=== PATIENT | male | born 1995 | race African-American/Black ===

== ENCOUNTER → 2016-12-30 | Outpatient (CLI) | payer OTHER ==
[2015-07-22 21:21] VITALS: BP 144/76
--- NOTE | 2016-12-30 15:45 | RAD ---
Renal ultrasound, 12/30/2016: History: Severe right flank pain The right kidney measures 11.0 cm in length, while the left kidney measures 13.5 cm. There is no evidence of hydronephrosis or a renal mass. No abnormal perinephric process is seen. The urinary bladder is collapsed and poorly defined. Apparent thickening of its hammer is probably due to lack of distention. IMPRESSION: 1. Mild relative enlargement of the left kidney. 2. No evidence of renal obstruction.
== END | disposition home or self-care (01) ==
LOC: US 13:32
PROVIDERS: ATTEND Internal Medicine
DX: N28.89 Other specified disorders of kidney and ureter (principal); N32.89 Other specified disorders of bladder
CPT/HCPCS: 76770

== ENCOUNTER 2018-11-11 11:55 | Emergency (ER) | payer BC, OTHER ==
[~2018-11-11] VITALS: Ht 188 cm; Wt 117.9 kg
[2018-11-11 12:25] VITALS: BP 106/66
[2018-11-11] MEDS ORDERED: HYDROcodone/APAP 5/325MG 1 TAB TABLET PO ONE (13:00)
--- NOTE | 2018-11-11 13:25 | RAD ---
ANKLE RIGHT 3V History: PATIENT ROLLED ANKLE ON A CURB LAST NIGHT. PAIN ACROSS ANTERIOR ASPECT OF ANKLE AND ON BOTH SIDES OF ANKLE. . Comparison: None are available Small ossicle dorsal to the talonavicular joint appears chronic. Small ununited os trigonum. No evidence of an acute fracture. No dislocation. Subtle widening of the lateral ankle mortise. IMPRESSION: No evidence of acute fracture. Borderline widening of the lateral ankle mortise is too subtle to be a definitive finding, but correlate for tibiotalar instability. Electronically signed by: Kris Ohara MD (11/11/2018 1:20 PM) [facility]
--- NOTE | 2018-11-11 13:37 | PHYS DOC ---
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 Surgical History: Other Additional Past Surgical Histo: Brachioplaxis repair Alcohol Use: Occasionally Drug Use: None Adult General Chief Complaint Chief Complaint: FOOT INJURY PAIN [facility] HPI Patient is a 23 year old [f__sex] who presents with [] Review of Systems Review of Systems Constitutional: Denies fever or chills [] Eyes: Denies change in visual acuity, redness, or eye pain [] HENT: Denies nasal congestion or sore throat [] Respiratory: Denies cough or shortness of breath [] Cardiovascular: No additional information not addressed in HPI [] GI: Denies abdominal pain, nausea, vomiting, bloody stools or diarrhea [] : Denies dysuria or hematuria [] Musculoskeletal: Denies back pain or joint pain [] Integument: Denies rash or skin lesions [] Neurologic: Denies headache, focal weakness or sensory changes [] Endocrine: Denies polyuria or polydipsia [] All other systems were reviewed and found to be within normal limits, except as documented in this note. Current Medications Current Medications Current Medications Medications (Trade) Dose Ordered Sig/Judy Start Time Stop Time Status Last Admin Dose Admin Acetaminophen/ Hydrocodone Bitart (Lortab 5/325) 1 tab 1X ONCE 11/11/18 13:00 11/11/18 13:01 DC 11/11/18 13:06 1 TAB Allergies Allergies Allergies Coded Allergies Type Severity Reaction Last Updated Verified No Known Drug Allergies 02/20/14 No Physical Exam Physical Exam Constitutional: Well developed, well nourished, no acute distress, non-toxic appearance. [] HENT: Normocephalic, atraumatic, bilateral external ears normal, oropharynx moist, no oral exudates, nose normal. [] Eyes: PERRLA, EOMI, conjunctiva normal, no discharge. [] Neck: Normal range of motion, no tenderness, supple, no stridor. [] Cardiovascular:Heart rate regular rhythm, no murmur [] Lungs & Thorax: Bilateral breath sounds clear to auscultation [] Abdomen: Bowel sounds normal, soft, no tenderness, no masses, no pulsatile masses. [] Skin: Warm, dry, no erythema, no rash. [] Back: No tenderness, no CVA tenderness. [] Extremities: No tenderness, no cyanosis, no clubbing, ROM intact, no edema. [] Neurologic: Alert and oriented X 3, normal motor function, normal sensory function, no focal deficits noted. [] Psychologic: Affect normal, judgement normal, mood normal. [] Current Patient Data Vital Signs Vital Signs Date Time Temp Pulse Resp B/P (MAP) Pulse Ox O2 Delivery O2 Flow Rate FiO2 11/11/18 13:06 16 11/11/18 12:25 98.7 90 106/66 (79) 99 Room Air 98.7 EKG EKG [] Radiology/Procedures Radiology/Procedures []PATIENT: ALPHONSO LOU LACCOUNT: [id number]#: [id number] : 1995 LOCATION: ER AGE: 23 SEX: M EXAM STATUS: REG ER ORD. PHYSICIAN: YARY DELEON APRN REASON: ankle injury, rolled on curb last night PROCEDURE: ANKLE RIGHT 3V ANKLE RIGHT 3V History: PATIENT ROLLED ANKLE ON A CURB LAST NIGHT. PAIN ACROSS ANTERIOR ASPECT OF ANKLE AND ON BOTH SIDES OF ANKLE. . Comparison: None are available Small ossicle dorsal to the talonavicular joint appears chronic. Small ununited os trigonum. No evidence of an acute fracture. No dislocation. Subtle widening of the lateral ankle mortise. IMPRESSION: No evidence of acute fracture. Borderline widening of the lateral ankle mortise is too subtle to be a definitive finding, but correlate for tibiotalar instability. Electronically signed by: Kris Ohara MD (11/11/2018 1:20 PM) [facility] DICTATED and SIGNED BY: KRIS OHARA MD DATE: 11/11/18 5985 Course & Med Decision Making Course & Med Decision Making Pertinent Labs and Imaging studies reviewed. (See chart for details) [] Dragon Disclaimer Dragon Disclaimer This electronic medical record was generated, in whole or in part, using a voice recognition dictation system. Departure Departure Impression: Primary Impression: Ankle sprain Disposition: HOME, SELF-CARE Condition: STABLE Referrals: MARVEL RODRIGUEZ MD (PCP) WIL GALVAN II, MD Patient Instructions: Ankle Sprain Additional Instructions: You may take ibuprofen or Tylenol for pain. Follow-up with orthopedic within 3 days. If worsening return to the emergency department. Scripts No Active Prescriptions or Reported Meds YARY DELEON APRN Nov 11, 2018 13:37
== END 2018-11-11 13:57 | disposition home or self-care (01) ==
LOC: ER 11:55
DX: S93.491A Sprain of other ligament of right ankle, initial encounter (principal); W10.1XXA Fall (on)(from) sidewalk curb, initial encounter; Y93.89 Activity, other specified; Y92.89 Other specified places as the place of occurrence of the external cause; Y99.8 Other external cause status
CPT/HCPCS: 29515; 73610; 99283

== ENCOUNTER → 2021-06-07 | Outpatient (CLI) | payer SELFPAY ==
[2021-03-21 14:18] VITALS: BP 130/61
[~2021-06-07] MED LIST: MULT-735 PO; OXYC1TAB19 PO
--- NOTE | 2021-06-07 13:26 | RAD ---
EXAM: Left humerus, 2 views; left forearm, 2 views. HISTORY: Pain. Fracture fixation. COMPARISON: 04/27/2021 FINDINGS: There is internal fixation of a distal humeral metaphyseal fracture with a plate and multip le screws. There is extensive callus formation surrounding the fracture line in instrumentation. Ther e is no complete bony bridging. There is no evidence of instrumentation loosening. IMPRESSION: 1. Extensive callus formation surrounding a distal humeral fracture status post internal fixation, co nsistent with partial healing. 2. No acute osseous finding. Electronically signed by: Nataly Tan MD (06/07/2021 1:23 PM) [id number]
== END ==
LOC: RAD 12:09
PROVIDERS: ATTEND Internal Medicine
DX: S42.402A Unspecified fracture of lower end of left humerus, initial encounter for closed fracture (principal); M79.89 Other specified soft tissue disorders; L84 Corns and callosities; X58.XXXA Exposure to other specified factors, initial encounter; Y93.89 Activity, other specified; Y92.89 Other specified places as the place of occurrence of the external cause; Y99.8 Other external cause status
CPT/HCPCS: 73060; 73090

== ENCOUNTER → 2021-06-15 | Outpatient (CLI) | payer SELFPAY ==
[2021-03-21 14:18] VITALS: BP 130/61
--- NOTE | 2021-06-15 16:14 | RAD ---
Left upper extremity duplex venous ultrasound study without comparison for left arm swelling at the l evel of the distal humerus, history of prior humeral fracture. TECHNIQUE: Real-time grayscale and color and spectral Doppler evaluation of the veins of left upper e xtremity is performed. The left jugular vein is patent and compressible. Left subclavian vein is also patent with biphasic flow. The left axillary and brachial veins are patent and compressible with int act augmentation. There is normal compressibility, color flow, and augmentation of the cephalic and b asilic veins, and there is normal compressibility of the lumbar radial veins. Targeted grayscale imag ing over the area of the patient's complaint demonstrates no soft tissue abnormalities. IMPRESSION: 1. No evidence of deep vein thrombosis. Electronically signed by: Jose Garcia MD (06/15/2021 4:12 PM) [id number]
== END ==
LOC: US 15:13
PROVIDERS: ATTEND Physician Assistant
DX: M79.89 Other specified soft tissue disorders (principal)
CPT/HCPCS: 93971